=== PATIENT | male | born 1975 | race Caucasian/White ===

== ENCOUNTER 2021-02-07 18:50 | Inpatient (IN) | payer OTHER ==
--- NOTE | 2021-02-07 19:36 | XR ---
EXAMINATION TYPE: XR chest 2V DATE OF EXAM: 02/07/2021 COMPARISON: NONE HISTORY: Cough TECHNIQUE: FINDINGS: There is bilateral patchy pulmonary interstitial pneumonia. Heart is borderline enlarged. T here is slight blunting of the costophrenic angles. IMPRESSION: Moderate pulmonary interstitial pneumonia with small pleural effusions. Heart failure not excluded.
[2021-02-07] MEDS ORDERED: KETOROLAC 15 MG/ML 1 ML VIAL IVP STA (20:39)
--- NOTE | 2021-02-07 20:44 | ED ---
URI HPI - General Chief Complaint: Upper Respiratory Infection Stated Complaint: Abd pain/sob/fever/cough Time Seen by Provider: 02/07/21 20:19 Source: patient, family Mode of arrival: ambulatory - History of Present Illness Initial Comments: 45-year-old male presenting to the emergency department today for chief complaint of chest discomfort shortness of breath possible Covid. Patient states that he has had chest discomfort for the past day he states it began yesterday evening. Patient states at times the pressure and he has had on and off palpitations throughout the day today. He states he feels slightly short of breath he has had bodyaches fevers nausea and nonspecific abdominal pain. Patient states that when the symptoms persisted today he felt it was best to be came to the ER. He denies a jaw pain arm pain, but has had finger paresthesias. pateint states he has felt sweaty today as well. Denies cardiac history of stent or OK. patietn admits to family hx, as well as hx of DM and HTN. patient denies LE swelling or calf pain. Patient has no additional complaints. - Related Data Home Medications Medication Instructions Recorded Confirmed Aspirin EC [Ecotrin Low Dose] 81 mg PO DAILY 02/07/21 02/07/21 Ergocalciferol (Vitamin D2) 1,250 mcg PO Q7D 02/07/21 02/07/21 [Drisdol (50,000 Iu)] Gabapentin [Neurontin] 300 mg PO DAILY 02/07/21 02/07/21 Metoprolol Tartrate [Lopressor] 50 mg PO BID 02/07/21 02/07/21 glipiZIDE [Glucotrol] 5 mg PO AC-BID 02/07/21 02/07/21 hydroCHLOROthiazide [Hydrodiuril] 25 mg PO HS 02/07/21 02/07/21 lisinopriL 40 mg PO DAILY 02/07/21 02/07/21 Allergies Allergy/AdvReac Type Severity Reaction Status Date / Time metformin Allergy Swelling Verified 02/07/21 22:48 Review of Systems ROS Statement: Those systems with pertinent positive or pertinent negative responses have been documented in the HPI. ROS Other: All systems not noted in ROS Statement are negative. Past Medical History Past Medical History: Diabetes Mellitus, Hypertension History of Any Multi-Drug Resistant Organisms: None Reported Past Surgical History: No Surgical Hx Reported Smoking Status: Never smoker Past Alcohol Use History: None Reported Past Drug Use History: None Reported General Exam - General Exam Comments Initial Comments: General: The patient is awake and alert, sweating Eye: Pupils are equal, round and reactive to light, extra-ocular movements are intact. No nystagmus. There is normal conjunctiva bilaterally. No signs of icterus. Ears, nose, mouth and throat: There are moist mucous membranes and no oral lesions. Neck: The neck is supple, there is no tenderness or JVD. Cardiovascular: There is a regular rate and rhythm. No murmur, rub or gallop is appreciated. Respiratory: Lungs are clear to auscultation, respirations are non-labored, breath sounds are equal. No wheezes, stridor, rales, or rhonchi. Gastrointestinal: Soft, non-distended, non-tender abdomen without masses or organomegaly noted. There is no rebound or guarding present. Musculoskeletal: Normal ROM, no tenderness. Strength 5/5. Sensation intact. Radial pulses equal bilaterally 2+. Neurological: A&O x 3. CN II-XII intact grossly, There are no obvious motor or sensory deficits. Coordination appears grossly intact. Speech is normal. Skin: Skin is warm and dry and no rashes or lesions are noted. No LE edema or calf pain. Psychiatric: Cooperative, appropriate mood & affect, normal judgment. Course Vital Signs 02/07/21 19:08 Temperature 99.0 F Pulse Rate 72 Respiratory 18 Rate Blood Pressure 188/85 O2 Sat by Pulse 97 Oximetry - Reevaluation(s) Reevaluation #1: Spoke with Dr Haines physician covering at this time for city call--he accepted admission and recommend starting low intensity heparin for elevated troponin after evaluating the patient in the ER. 02/07/21 23:00 Medical Decision Making - Medical Decision Making 45-year-old male presented for multiple complaints concern for Covid, chest pain shortness of breath patient is covid positive. troponin elevated. EKG no specific changes. reviewed with attneding. will trend. CXR pneumonia/CTA concerning for pneumonia related to covid 19 infection. no PE noted. pt does have symptoms concerning for typical chest pain with hx of DM/HTN. patient accepted by Dr Haines who asked me to place order for low intensity heparin. Cardiology on consultation. patient agreeable to admission and current care plan. - Lab Data Result diagrams: 02/07/21 21:01 02/07/21 21:01 Lab Results 02/07/21 02/07/21 02/07/21 Range/Units 19:13 21:01 21:01 WBC 6.6 (3.8-10.6) k/uL RBC 5.04 (4.30-5.90) m/uL Hgb 15.3 (13.0-17.5) gm/dL Hct 44.6 (39.0-53.0) % MCV 88.4 (80.0-100.0) fL MCH 30.4 (25.0-35.0) pg MCHC 34.4 (31.0-37.0) g/dL RDW 12.4 (11.5-15.5) % Plt Count 202 (150-450) k/uL MPV 8.7 Neutrophils % 84 % Lymphocytes % 8 % Monocytes % 6 % Eosinophils % 1 % Basophils % 1 % Neutrophils # 5.5 (1.3-7.7) k/uL Lymphocytes # 0.6 L (1.0-4.8) k/uL Monocytes # 0.4 (0-1.0) k/uL Eosinophils # 0.0 (0-0.7) k/uL Basophils # 0.1 (0-0.2) k/uL D-Dimer 1.07 H (<0.60) mg/L FEU Sodium (137-145) mmol/L Potassium (3.5-5.1) mmol/L Chloride (98-107) mmol/L Carbon Dioxide (22-30) mmol/L Anion Gap mmol/L BUN (9-20) mg/dL Creatinine (0.66-1.25) mg/dL Est GFR (CKD-EPI)AfAm (>60 ml/min/1.73 sqM) Est GFR (CKD-EPI)NonAf (>60 ml/min/1.73 sqM) Glucose (74-99) mg/dL Calcium (8.4-10.2) mg/dL Total Bilirubin (0.2-1.3) mg/dL AST (17-59) U/L ALT (4-49) U/L Alkaline Phosphatase (38-126) U/L Troponin I (0.000-0.034) ng/mL NT-Pro-B Natriuret Pep pg/mL Total Protein (6.3-8.2) g/dL Albumin (3.5-5.0) g/dL Influenza Type A (PCR) Not Detected (Not Detectd) Influenza Type B (PCR) Not Detected (Not Detectd) RSV (PCR) Not Detected (Not Detectd) SARS-CoV-2 (PCR) Detected A (Not Detectd) 02/07/21 02/07/21 02/07/21 Range/Units 21:01 21:01 21:01 WBC (3.8-10.6) k/uL RBC (4.30-5.90) m/uL Hgb (13.0-17.5) gm/dL Hct (39.0-53.0) % MCV (80.0-100.0) fL MCH (25.0-35.0) pg MCHC (31.0-37.0) g/dL RDW (11.5-15.5) % Plt Count (150-450) k/uL MPV Neutrophils % % Lymphocytes % % Monocytes % % Eosinophils % % Basophils % % Neutrophils # (1.3-7.7) k/uL Lymphocytes # (1.0-4.8) k/uL Monocytes # (0-1.0) k/uL Eosinophils # (0-0.7) k/uL Basophils # (0-0.2) k/uL D-Dimer (<0.60) mg/L FEU Sodium 132 L (137-145) mmol/L Potassium 3.8 (3.5-5.1) mmol/L Chloride 96 L (98-107) mmol/L Carbon Dioxide 25 (22-30) mmol/L Anion Gap 11 mmol/L BUN 18 (9-20) mg/dL Creatinine 0.70 (0.66-1.25) mg/dL Est GFR (CKD-EPI)AfAm >90 (>60 ml/min/1.73 sqM) Est GFR (CKD-EPI)NonAf >90 (>60 ml/min/1.73 sqM) Glucose 272 H (74-99) mg/dL Calcium 8.8 (8.4-10.2) mg/dL Total Bilirubin 0.8 (0.2-1.3) mg/dL AST 40 (17-59) U/L ALT 22 (4-49) U/L Alkaline Phosphatase 76 (38-126) U/L Troponin I 0.073 H* (0.000-0.034) ng/mL NT-Pro-B Natriuret Pep 525 pg/mL Total Protein 7.1 (6.3-8.2) g/dL Albumin 3.9 (3.5-5.0) g/dL Influenza Type A (PCR) (Not Detectd) Influenza Type B (PCR) (Not Detectd) RSV (PCR) (Not Detectd) SARS-CoV-2 (PCR) (Not Detectd) Disposition Clinical Impression: COVID-19, Elevated troponin, Chest pressure, Dyspnea Disposition: ADMITTED IP TO THIS [facility] Condition: Stable Is patient prescribed a controlled substance at d/c from ED?: No Referrals: Kareem Byers DO [Primary Care Provider] - 1-2 days Time of Disposition: 22:58 Decision to Admit Reason: Admit from EC Decision Date: 02/07/21 Decision Time: 22:58
[2021-02-07 21:26] LABS: Basophils # (A) 0.1 k/uL (0-0.2); Basophils % (A) 1 %; Eosinophils % (A) 1 %; HCT 44.6 % (39.0-53.0); HGB 15.3 gm/dL (13.0-17.5); Lymphocytes # (A) 0.6 k/uL (1.0-4.8); Lymphocytes % (A) 8 %; MCH 30.4 pg (25.0-35.0); MCHC 34.4 g/dL (31.0-37.0); MCV 88.4 fL (80.0-100.0); Mean Platelet Volume 8.7; Monocytes # (A) 0.4 k/uL (0-1.0); Monocytes % (A) 6 %; Neutrophils # (A) 5.5 k/uL (1.3-7.7); Neutrophils % (A) 84 %; Platelet Count 202 k/uL (150-450); RBC 5.04 m/uL (4.30-5.90); RDW 12.4 % (11.5-15.5); WBC 6.6 k/uL (3.8-10.6)
[2021-02-07 21:43] LABS: ALT 22 U/L (4-49); AST 40 U/L (17-59); African American GFR (CKD) >90 (>60 ml/min/1.73 sqM); Albumin 3.9 g/dL (3.5-5.0); Alkaline Phosphatase 76 U/L (38-126); Anion Gap 11 mmol/L; Blood Urea Nitrogen 18 mg/dL (9-20); Calcium 8.8 mg/dL (8.4-10.2); Carbon Dioxide 25 mmol/L (22-30); Chloride 96 mmol/L (98-107); Glucose 272 mg/dL (74-99); Non-African American GFR(CKD) >90 (>60 ml/min/1.73 sqM); Sodium 132 mmol/L (137-145); Total Bilirubin 0.8 mg/dL (0.2-1.3); Total Protein 7.1 g/dL (6.3-8.2)
[2021-02-07 22:03] LABS: Potassium 3.8 mmol/L (3.5-5.1)
[2021-02-07] MEDS ORDERED: ASPIRIN 81 MG PO STA (22:22)
[2021-02-07] MEDS ORDERED: MORPHINE SULFATE 4 MG/ML SYRINGE IVP STA (22:24)
[2021-02-07] MEDS ORDERED: NITROGLYCERIN OINT 1 INCH/GM PACKET TOPICAL STA (22:24)
[2021-02-07] MEDS ORDERED: HEPARIN SODIUM 1,000 UN/ML (10ML VL) IV PRN (22:56)
[2021-02-07] MEDS ORDERED: HEPARIN SODIUM 1,000 UN/ML (10ML VL) IV ONE (22:56)
[2021-02-07] MEDS ORDERED: NITROGLYCERIN SL TABS 0.4 MG TAB SUBLINGUAL PRN (22:58)
--- NOTE | 2021-02-07 22:58 | CT ---
EXAMINATION TYPE: CT chest angio for PE DATE OF EXAM: 02/07/2021 COMPARISON: None HISTORY: r/o pe CT DLP: 984.1 mGycm Automated exposure control for dose reduction was used. CONTRAST: Performed with IV Contrast, patient injected with 100 mL of Isovue 370. There are 3-D post processed images. There is extensive patchy bilateral pulmonary interstitial and airspace infiltrates. There is no pleu ral effusion. Heart is borderline enlarged. There is no pericardial effusion. There is no mediastinal adenopathy. Thoracic aorta is intact. There is no aneurysm or dissection. The re are no hilar masses. There is normal contrast opacification of the pulmonary arteries. I see no fi lling defect. The thoracic spine is intact. There is no compression fracture. Sternum is intact. Upper abdominal soft tissues are intact. IMPRESSION: No evidence of pulmonary embolism. Bilateral extensive pulmonary infiltrates consistent with pneumoni a. Mild cardiomegaly.
[2021-02-07] MEDS ORDERED: HEPARIN SOD,PORK IN 0.45% NACL 25,000 UNIT in 0.45% NACL 1 250ML.BAG IV SCH (23:00)
[2021-02-07 23:25] LABS: Partial Thromboplastin Time 26.3 sec (22.0-30.0); Prothrombin Time 10.4 sec (9.0-12.0)
--- NOTE | 2021-02-08 04:33 | P.HPIM ---
History of Present Illness H&P Date: 02/07/21 Patient is a 45-year-old male with a PMH of type II DM, hypertension, and hyperlipidemia who presented to the emergency room with complaints of chest pain and shortness of breath. The patient notes that he was exposed to people with COVID and that he hadn't been feeling well over the past 4-5 days but reports that he developed his epigastric and substernal chest discomfort yesterday. The pain started as he was sitting on a couch, pressure-like, 7 out of 10, nonradiating, intermittent, lasting for a few minutes at a time, with associated shortness of breath and nausea. The patient denied any prior history of IA. He also denied recent travel, leg swelling or leg pain. In the emergency room, chest CTA was negative for PE but revealed bilateral extensive pulmonary infiltrates along with mild cardiomegaly. EKG revealed normal sinus rhythm at 77 bpm with prolonged QT. Laboratory evaluation was remarkable for troponin 0.073, glucose 272, sodium 132, and coronavirus PCR positive Review of Systems Pertinent positives and negatives as discussed in HPI, a complete review of systems was performed and all other systems are negative. Past Medical History Past Medical History: Diabetes Mellitus, Hypertension History of Any Multi-Drug Resistant Organisms: None Reported Past Surgical History: No Surgical Hx Reported Smoking Status: Never smoker Past Alcohol Use History: None Reported Past Drug Use History: None Reported Medications and Allergies Home Medications Medication Instructions Recorded Confirmed Type Aspirin EC [Ecotrin Low Dose] 81 mg PO DAILY 02/07/21 02/07/21 History Ergocalciferol (Vitamin D2) 1,250 mcg PO Q7D 02/07/21 02/07/21 History [Drisdol (50,000 Iu)] Gabapentin [Neurontin] 300 mg PO DAILY 02/07/21 02/07/21 History Metoprolol Tartrate [Lopressor] 50 mg PO BID 02/07/21 02/07/21 History glipiZIDE [Glucotrol] 5 mg PO AC-BID 02/07/21 02/07/21 History hydroCHLOROthiazide [Hydrodiuril] 25 mg PO HS 02/07/21 02/07/21 History lisinopriL 40 mg PO DAILY 02/07/21 02/07/21 History Allergies Allergy/AdvReac Type Severity Reaction Status Date / Time metformin Allergy Swelling Verified 02/07/21 22:48 Physical Exam Vitals: Vital Signs Temp Pulse Pulse Resp BP Pulse Ox 02/07/21 23:24 75 18 190/83 96 02/07/21 21:10 74 24 02/07/21 19:08 99.0 F 72 18 188/85 97 Intake and Output 02/07/21 02/07/21 02/08/21 14:59 22:59 06:59 Other: Weight 183.251 kg General: non toxic, no distress, appears at stated age, morbidly obese Derm: no unusual rashes/lesions no unusual ecchymoses, warm, dry Head: atraumatic, normocephalic, symmetric Eyes: EOMI, no lid lag, anicteric sclera, pupils equal round reactive to light ENT: Nose and ears atraumatic, no thrush, no pharyngeal erythema Neck: No thyromegaly, no cervical lymphadenopathy, trachea midline, supple Mouth: no lip lesion, mucus membranes moist Cardiovascular: S1S2 reg, no murmur, positive posterior tibial pulse bilateral, no edema, capillary refill less than 2 seconds Lungs: Diffuse mild bilateral rhonchi and rales, no wheezing, no accessory muscle use Abdominal: soft, minimal epigastric tenderness, no guarding, no appreciable organomegaly, normal bowel sounds Ext: no gross muscle atrophy, muscle strength 5 out of 5 in all 4 extremities grossly, no contractures, Neuro: CN II-XI grossly intact, light touch intact all 4 extremities, finger to nose within normal limits, Psych: Alert, oriented, appropriate affect Results CBC & Chem 7: 02/07/21 21:01 02/07/21 21:01 Labs: Abnormal Lab Results - Last 24 Hours (Table) 02/07/21 02/07/21 02/07/21 Range/Units 19:13 21:01 21:01 Lymphocytes # 0.6 L (1.0-4.8) k/uL D-Dimer 1.07 H (<0.60) mg/L FEU Sodium (137-145) mmol/L Chloride (98-107) mmol/L Glucose (74-99) mg/dL Troponin I (0.000-0.034) ng/mL SARS-CoV-2 (PCR) Detected A (Not Detectd) 02/07/21 02/07/21 Range/Units 21:01 21:01 Lymphocytes # (1.0-4.8) k/uL D-Dimer (<0.60) mg/L FEU Sodium 132 L (137-145) mmol/L Chloride 96 L (98-107) mmol/L Glucose 272 H (74-99) mg/dL Troponin I 0.073 H* (0.000-0.034) ng/mL SARS-CoV-2 (PCR) (Not Detectd) Assessment and Plan Plan: NSTEMI -C/w heparin infusion and aspirin -Cardiology consult -Cardiac monitoring -Trend troponin -Nitroglycerin COVID-19 pneumonia -Not requiring supplemental oxygen at this time -Monitor inflammatory markers -Zinc, Vit C, Vit D, Melatonin Prolonged QT -Avoid further prolonging agents Chronic conditions: Type II DM, hypertension, hyperlipidemia -Continue with home meds -Lispro insulin sliding scale with blood glucose monitoring -Check A1c DVT prophylaxis -Heparin infusion The patient is admitted with an anticipated greater than 2 midnight stay for evaluation of NSTEMI CODE STATUS: Full Code Discussed with: Patient Anticipated discharge date: 2-[address]: Home A total of 35 minutes was spent on the care of this complex patient more than 50% of the time was spent in counseling and care coordination.
[2021-02-08 05:09] LABS: Basophils # (A) 0.1 k/uL (0-0.2); Basophils % (A) 1 %; Eosinophils % (A) 0 %; HCT 43.9 % (39.0-53.0); HGB 15.3 gm/dL (13.0-17.5); Lymphocytes # (A) 0.8 k/uL (1.0-4.8); Lymphocytes % (A) 11 %; MCHC 34.8 g/dL (31.0-37.0); MCV 89.2 fL (80.0-100.0); Mean Platelet Volume 8.9; Monocytes # (A) 0.5 k/uL (0-1.0); Monocytes % (A) 7 %; Neutrophils # (A) 5.4 k/uL (1.3-7.7); Neutrophils % (A) 79 %; Platelet Count 228 k/uL (150-450); RBC 4.92 m/uL (4.30-5.90); RDW 12.4 % (11.5-15.5); WBC 6.9 k/uL (3.8-10.6)
[2021-02-08 05:31] LABS: Partial Thromboplastin Time 28.4 sec (22.0-30.0); Prothrombin Time 10.6 sec (9.0-12.0)
[2021-02-08 05:36] LABS: ALT 20 U/L (4-49); AST 33 U/L (17-59); African American GFR (CKD) >90 (>60 ml/min/1.73 sqM); Albumin 3.7 g/dL (3.5-5.0); Alkaline Phosphatase 76 U/L (38-126); Anion Gap 7 mmol/L; Blood Urea Nitrogen 19 mg/dL (9-20); C Reactive Protein 4.9 mg/dL (<1.0); Calcium 8.5 mg/dL (8.4-10.2); Carbon Dioxide 31 mmol/L (22-30); Chloride 95 mmol/L (98-107); Glucose 211 mg/dL (74-99); LDH 813 U/L (313-618); Non-African American GFR(CKD) >90 (>60 ml/min/1.73 sqM); Sodium 133 mmol/L (137-145); Total Bilirubin 0.6 mg/dL (0.2-1.3); Total Protein 6.8 g/dL (6.3-8.2)
[2021-02-08 05:45] LABS: Potassium 3.6 mmol/L (3.5-5.1)
[2021-02-08 05:54] LABS: Cholesterol 135 mg/dL (<200); HDL Cholesterol 28 mg/dL (40-60); LDL Cholesterol,Calculated 83 mg/dL (0-99); Triglycerides 121 mg/dL (<150)
[2021-02-08 05:57] LABS: Glucose,Whole Blood 211 mg/dL (75-99)
[2021-02-08] MEDS: ACETAMINOPHEN TAB 325 MG TAB PO PRN ×3 (06:04→23:13)
[2021-02-08] MEDS: INSULIN ASPART (NovoLOG) 100 UNIT/ML VIAL SQ SCH ×4 (06:06→20:45)
[2021-02-08] MEDS ORDERED: ASPIRIN 325 MG TAB PO SCH (09:00)
[2021-02-08] MEDS ORDERED: METOPROLOL TARTRATE 25 MG TAB PO SCH (09:00)
[2021-02-08] MEDS: ASCORBIC ACID 500 MG TAB PO SCH (09:44)
[2021-02-08] MEDS: CHOLECALCIFEROL 25 MCG (1000 IU) TABLET PO SCH (09:44)
[2021-02-08] MEDS: GABAPENTIN 300 MG CAP PO SCH (09:44)
[2021-02-08] MEDS: lisinopriL 20 MG TAB PO SCH (09:44)
[2021-02-08] MEDS: ASPIRIN 81 MG PO SCH (09:44)
[2021-02-08] MEDS: METOPROLOL TARTRATE 50 MG TAB PO SCH ×2 (09:45→20:44)
[2021-02-08 10:36] LABS: Ferritin 431.3 ng/mL (22.0-322.0)
--- NOTE | 2021-02-08 12:21 | ECHOF ---
Referral Reason:chest pain, elevated troponin MEASUREMENTS -------- HEIGHT: 165.1 cm WEIGHT: 185.5 kg BP: IVSd: 1.6 cm (0.6 - 1.1) LVIDd: 3.6 cm (3.9 - 5.3) LVPWd: 2.1 cm (0.6 - 1.1) IVSs: 1.9 cm LVIDs: 2.1 cm LVPWs: 1.8 cm LA Diam: 4.5 cm (2.7 - 3.8) Ao Diam: 3.0 cm (2.0 - 3.7) FINDINGS -------- Sinus rhythm. This was a technically difficult study with suboptimal views. Morbid Obesity Pt is Covid positive . The left ventricular size is normal. There is moderate concentric left ventricular hypertrophy. O verall left ventricular systolic function is normal with, an EF between 55 - 60 %. The right ventricle is normal in size. The left atrium is mildly dilated. The right atrial size is normal. 5.0mg OF Lumason UTLIZED: 2 OR MORE WALL SEGMENTS NOT VISUALIZED. The aortic valve was not well visualized. The mitral valve was not well visualized. The tricuspid valve was not well visualized. The pulmonic valve was not well visualized. The aortic root size is normal. There is no pericardial effusion. CONCLUSIONS -------- 1. This was a technically difficult study with suboptimal views. 2. Morbid Obesity 3. Pt is Covid positive. 4. There is moderate concentric left ventricular hypertrophy. 5. Overall left ventricular systolic function is normal with, an EF between 55 - 60 %. 6. The left atrium is mildly dilated. 7. 5.0mg OF Lumason UTLIZED: 2 OR MORE WALL SEGMENTS NOT VISUALIZED. 8. The aortic valve was not well visualized. 9. The mitral valve was not well visualized. 10. The tricuspid valve was not well visualized. 11. There is no pericardial effusion. EVALUATION SPECIALIST: Brenna Orozco RDCS
--- NOTE | 2021-02-08 14:27 | P.PN ---
Subjective Progress Note Date: 02/08/21 No new complaints today. Denies any further chest pain at this time. Does have minimal O2 requirement. Objective - Vital Signs Vital signs: Vital Signs Temp 98.2 F 02/08/21 12:17 Pulse 69 02/08/21 12:17 Resp 16 02/08/21 12:17 BP 141/88 02/08/21 12:17 Pulse Ox 93 L 02/08/21 12:17 Intake & Output 02/07/21 02/08/21 02/08/21 18:59 06:59 18:59 Intake Total 63.5 100.967 Balance 63.5 100.967 Weight 183.251 kg Intake: Intake, IV Titration 63.5 100.967 Amount Heparin Sod,Pork in 0.45% 63.5 100.967 NaCl 25,000 unit In 0.45 % NaCl 1 250ml.bag @ 5. 457 UNITS/KG/HR 10 mls/hr IV .Q24H [facility] Rx#: [id number] - Exam Gen: awake, alert, obese HEENT: normocephalic, atraumatic, good hearing acuity, moist mucous membranes Resp: Minimized air exchange, breathing comfortably with no accessory muscle use CVS: good distal perfusion x 4, GI: soft, NTTP, ND : no SPT, no CVAT, ding catheter not present MSK: Trace pitting edema, no clubbing Neuro: non-focal, moving all extremities Psych: cooperative, euthymic mood - Labs CBC & Chem 7: 02/08/21 04:33 02/08/21 04:33 Labs: Abnormal Lab Results - Last 24 Hours (Table) 02/07/21 02/07/21 02/07/21 Range/Units 19:13 21:01 21:01 Lymphocytes # 0.6 L (1.0-4.8) k/uL D-Dimer 1.07 H (<0.60) mg/L FEU Sodium (137-145) mmol/L Chloride (98-107) mmol/L Carbon Dioxide (22-30) mmol/L Glucose (74-99) mg/dL POC Glucose (mg/dL) (75-99) mg/dL Ferritin (22.0-322.0) ng/mL Lactate Dehydrogenase (313-618) U/L Troponin I (0.000-0.034) ng/mL C-Reactive Protein (<1.0) mg/dL HDL Cholesterol (40-60) mg/dL SARS-CoV-2 (PCR) Detected A (Not Detectd) 02/07/21 02/07/21 02/08/21 Range/Units 21:01 21:01 00:22 Lymphocytes # (1.0-4.8) k/uL D-Dimer (<0.60) mg/L FEU Sodium 132 L (137-145) mmol/L Chloride 96 L (98-107) mmol/L Carbon Dioxide (22-30) mmol/L Glucose 272 H (74-99) mg/dL POC Glucose (mg/dL) (75-99) mg/dL Ferritin (22.0-322.0) ng/mL Lactate Dehydrogenase (313-618) U/L Troponin I 0.073 H* 0.081 H* (0.000-0.034) ng/mL C-Reactive Protein (<1.0) mg/dL HDL Cholesterol (40-60) mg/dL SARS-CoV-2 (PCR) (Not Detectd) 02/08/21 02/08/21 02/08/21 Range/Units 03:20 04:33 04:33 Lymphocytes # 0.8 L (1.0-4.8) k/uL D-Dimer (<0.60) mg/L FEU Sodium 133 L (137-145) mmol/L Chloride 95 L (98-107) mmol/L Carbon Dioxide 31 H (22-30) mmol/L Glucose 211 H (74-99) mg/dL POC Glucose (mg/dL) (75-99) mg/dL Ferritin 431.3 H (22.0-322.0) ng/mL Lactate Dehydrogenase 813 H (313-618) U/L Troponin I 0.097 H* (0.000-0.034) ng/mL C-Reactive Protein 4.9 H (<1.0) mg/dL HDL Cholesterol 28 L (40-60) mg/dL SARS-CoV-2 (PCR) (Not Detectd) 02/08/21 Range/Units 05:55 Lymphocytes # (1.0-4.8) k/uL D-Dimer (<0.60) mg/L FEU Sodium (137-145) mmol/L Chloride (98-107) mmol/L Carbon Dioxide (22-30) mmol/L Glucose (74-99) mg/dL POC Glucose (mg/dL) 211 H (75-99) mg/dL Ferritin (22.0-322.0) ng/mL Lactate Dehydrogenase (313-618) U/L Troponin I (0.000-0.034) ng/mL C-Reactive Protein (<1.0) mg/dL HDL Cholesterol (40-60) mg/dL SARS-CoV-2 (PCR) (Not Detectd) Assessment and Plan Assessment: NSTEMI -C/w heparin infusion and aspirin -Cardiology consult, pending -Cardiac monitoring -Trend troponin -Nitroglycerin COVID-19 pneumonia -Not requiring supplemental oxygen at this time -Monitor inflammatory markers = ferritin, CRP, and LDH are elevated -Zinc, Vit C, Vit D, Melatonin -Avoiding dexamethasone at this time given minimal oxygen requirement, no dyspnea, and elevated glucose in the setting of type 2 diabetes Prolonged QT -Avoid further prolonging agents Chronic conditions: Type II DM, hypertension, hyperlipidemia -Continue with home meds -Lispro insulin sliding scale with blood glucose monitoring -Check A1c DVT prophylaxis -Heparin infusion The patient is admitted with an anticipated greater than 2 midnight stay for evaluation of NSTEMI CODE STATUS: Full Code Discussed with: Patient Anticipated discharge date: 2-[address]: Home
--- NOTE | 2021-02-08 15:04 | P.CRDCN ---
History of Present Illness History of present illness: HISTORY OF PRESENTING ILLNESS This is a pleasant 45-year-old male past medical history significant for Hypertension, Type 2 Diabetes, hyperlipidemia. 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 We have been asked to see in consultation for chest pain, elevated troponin. Patient presents emergency department with chest pain and shortness of breath. Found to be Covid-19 positive. He developed his epigastric and substernal chest discomfort yesterday. Associated shortness of breath and nausea. Pain felt like a pressure 8/10, non exertinoal, nonradiating, intermittent. Last about 2 minutes. Denies history of [place], stroke in the past. Laboratory data reviewed, troponin 0.07, 0.08, 0.09, sodium 133, potassium 3.6, serum creatinine 0.89, triglycerides 121, cholesterol 135, LDL 83, HDL 28 Vital signs blood pressure 152/75, heart rate 81, afebrile, maintaining oxygen saturations 97% on 2 L DIAGNOSTICS EKG reveals sinus rhythm, HR 77, no significant ST-T wave abnormalities Chest CT- negative for PE. Bilateral extensive pulmonary infiltrates consistent with PNA. REVIEW OF SYSTEMS At the time of my exam: CONSTITUTIONAL: Denies fever or chills. CARDIOVASCULAR: +chest pain, +shortness of breath, Honey orthopnea, PND or palpitations. RESPIRATORY: Denies cough. GASTROINTESTINAL: Denies abdominal pain, diarrhea, constipation, nausea or vomiting. MUSCULOSKELETAL: Denies myalgias. NEUROLOGIC: Denies numbness, tingling, headacbe or weakness. ENDOCRINE: Denies fatigue, weight change, polydipsia or polyurina. GENITOURINARY: Denies burning, hematuria or urgency with micturation. HEMATOLOGIC: Denies history of anemia or bleeding. PHYSICAL EXAMINATION No thorough exam due to covid-19 infection ASSESSMENT Chest pain, atypical , most likely related to covid-19 Elevated troponin, most likely related to covid-19 infection COVID-19 infection Type 2 Diabetes Hyperlipidemia Hypertension PLAN Obtain 2D echocardiogram- Results reviewed EF 55% 60%, LA is mildly dilated From cardiology standpoint, no intervention needed at this time. Patient can follow up outpatient with Dr. Villarreal for outpatient stress test. Nurse Practitioner note has been reviewed, I agree with a documented findings and plan of care. Patient was seen and examined. Past Medical History Past Medical History: Diabetes Mellitus, Hypertension History of Any Multi-Drug Resistant Organisms: None Reported Past Surgical History: No Surgical Hx Reported Past Anesthesia/Blood Transfusion Reactions: No Reported Reaction Smoking Status: Never smoker Past Alcohol Use History: None Reported Past Drug Use History: None Reported Medications and Allergies Home Medications Medication Instructions Recorded Confirmed Type Aspirin EC [Ecotrin Low Dose] 81 mg PO DAILY 02/07/21 02/07/21 History Ergocalciferol (Vitamin D2) 1,250 mcg PO Q7D 02/07/21 02/07/21 History [Drisdol (50,000 Iu)] Gabapentin [Neurontin] 300 mg PO DAILY 02/07/21 02/07/21 History Metoprolol Tartrate [Lopressor] 50 mg PO BID 02/07/21 02/07/21 History glipiZIDE [Glucotrol] 5 mg PO AC-BID 02/07/21 02/07/21 History hydroCHLOROthiazide [Hydrodiuril] 25 mg PO HS 02/07/21 02/07/21 History lisinopriL 40 mg PO DAILY 02/07/21 02/07/21 History Allergies Allergy/AdvReac Type Severity Reaction Status Date / Time metformin Allergy Swelling Verified 02/07/21 22:48 Physical Exam Vitals: Vital Signs Temp Pulse Pulse Resp BP BP Pulse Ox 02/08/21 04:00 98.4 F 79 20 165/71 98 02/08/21 01:20 97.6 F 85 18 121/65 98 02/08/21 00:43 84 20 164/83 96 02/07/21 23:24 75 18 190/83 96 02/07/21 21:10 74 24 02/07/21 19:08 99.0 F 72 18 188/85 97 Intake and Output 02/07/21 02/08/21 02/08/21 22:59 06:59 14:59 Intake Total 63.5 Balance 63.5 Intake: Intake, IV Titration 63.5 Amount Heparin Sod,Pork in 0.45% 63.5 NaCl 25,000 unit In 0.45 % NaCl 1 250ml.bag @ 5. 457 UNITS/KG/HR 10 mls/hr IV .Q24H [facility] Rx#: [id number] Other: Weight 183.251 kg 183.251 kg Results 02/08/21 04:33 02/08/21 04:33 Cardiac Enzymes 02/07/21 02/07/21 02/08/21 Range/Units 21:01 21:01 00:22 AST 40 (17-59) U/L Lactate Dehydrogenase (313-618) U/L Troponin I 0.073 H* 0.081 H* (0.000-0.034) ng/mL 02/08/21 02/08/21 Range/Units 03:20 04:33 AST 33 (17-59) U/L Lactate Dehydrogenase 813 H (313-618) U/L Troponin I 0.097 H* (0.000-0.034) ng/mL Coagulation 02/07/21 02/08/21 Range/Units 09:01 04:33 PT 10.4 10.6 (9.0-12.0) sec APTT 26.3 28.4 (22.0-30.0) sec Lipids 02/08/21 Range/Units 04:33 Triglycerides 121 (<150) mg/dL Cholesterol 135 (<200) mg/dL HDL Cholesterol 28 L (40-60) mg/dL CBC 02/07/21 02/08/21 Range/Units 21:01 04:33 WBC 6.6 6.9 (3.8-10.6) k/uL RBC 5.04 4.92 (4.30-5.90) m/uL Hgb 15.3 15.3 (13.0-17.5) gm/dL Hct 44.6 43.9 (39.0-53.0) % Plt Count 202 228 (150-450) k/uL Comprehensive Metabolic Panel 02/07/21 02/08/21 Range/Units 21:01 04:33 Sodium 132 L 133 L (137-145) mmol/L Potassium 3.8 3.6 (3.5-5.1) mmol/L Chloride 96 L 95 L (98-107) mmol/L Carbon Dioxide 25 31 H (22-30) mmol/L BUN 18 19 (9-20) mg/dL Creatinine 0.70 0.89 (0.66-1.25) mg/dL Glucose 272 H 211 H (74-99) mg/dL Calcium 8.8 8.5 (8.4-10.2) mg/dL AST 40 33 (17-59) U/L ALT 22 20 (4-49) U/L Alkaline Phosphatase 76 76 (38-126) U/L Total Protein 7.1 6.8 (6.3-8.2) g/dL Albumin 3.9 3.7 (3.5-5.0) g/dL Current Medications Generic Name Dose Route Start Last Admin Trade Name Freq PRN Reason Stop Dose Admin Acetaminophen 650 mg 02/08/21 04:32 02/08/21 06:04 Acetaminophen Tab 325 Mg Tab PO 650 mg Q6HR PRN Administration Fever and/ or Pain Ascorbic Acid 1,000 mg 02/08/21 09:00 Ascorbic Acid 500 Mg Tab PO DAILY [facility] Aspirin 325 mg 02/08/21 09:00 Aspirin 325 Mg Tab PO DAILY [facility] Cholecalciferol 125 mcg 02/08/21 09:00 Cholecalciferol 25 Mcg (1000 Iu) Tablet PO DAILY [facility] Gabapentin 300 mg 02/08/21 09:00 Gabapentin 300 Mg Cap PO DAILY [facility] Heparin Sodium (Porcine) 0 unit 02/07/21 22:56 Heparin Sodium 1,000 Un/Ml (10ml Vl) IV PER PROTOCOL PRN Low PTT Protocol Hydrochlorothiazide 25 mg 02/08/21 21:00 Hydrochlorothiazide 25 Mg Tab PO HS [facility] Heparin Sodium/Sodium Chloride 250 mls @ 10 mls/hr 02/07/21 23:00 02/08/21 05:42 25,000 unit/ Sodium Chloride IV 7.09 units/kg/hr .Q24H [facility] 13 mls/hr Titration Protocol 5.457 UNITS/KG/HR Insulin Aspart 0 unit 02/08/21 07:30 02/08/21 06:06 Insulin Aspart (Novolog) 100 Unit/Ml Vial SQ Not Given ACHS [facility] Protocol Lisinopril 40 mg 02/08/21 09:00 Lisinopril 20 Mg Tab PO DAILY [facility] Melatonin 5 mg 02/08/21 21:00 Melatonin 5 Mg Tablet PO HS [facility] Metoprolol Tartrate 50 mg 02/08/21 09:00 Metoprolol Tartrate 50 Mg Tab PO BID [facility] Nitroglycerin 0.4 mg 02/07/21 22:58 Nitroglycerin Sl Tabs 0.4 Mg Tab SUBLINGUAL Q5M PRN Chest Pain Intake and Output 02/07/21 02/08/21 02/08/21 22:59 06:59 14:59 Intake Total 63.5 Balance 63.5 Intake: Intake, IV Titration 63.5 Amount Heparin Sod,Pork in 0.45% 63.5 NaCl 25,000 unit In 0.45 % NaCl 1 250ml.bag @ 5. 457 UNITS/KG/HR 10 mls/hr IV .Q24H [facility] Rx#: [id number] Other: Weight 183.251 kg 183.251 kg 02/08/21 04:33 02/08/21 04:33
[2021-02-08 16:56] LABS: Glucose,Whole Blood 206 mg/dL (75-99)
[2021-02-08] MEDS: HEPARIN SOD,PORK IN 0.45% NACL 25,000 UNIT in 0.45% NACL 1 250ML.BAG IV SCH (17:16)
[2021-02-08 20:03] LABS: Glucose,Whole Blood 274 mg/dL (75-99)
[2021-02-08] MEDS: MELATONIN 5 MG TABLET PO SCH (20:44)
[2021-02-08] MEDS: hydroCHLOROthiazide 25 MG TAB PO SCH (20:44)
[2021-02-08 22:35] LABS: Hemoglobin A1C 8.3 % (4.0-6.0)
[2021-02-09 05:13] LABS: Basophils # (A) 0.1 k/uL (0-0.2); Basophils % (A) 1 %; Eosinophils % (A) 0 %; HCT 43.5 % (39.0-53.0); HGB 14.4 gm/dL (13.0-17.5); Lymphocytes # (A) 0.9 k/uL (1.0-4.8); Lymphocytes % (A) 12 %; MCHC 33.2 g/dL (31.0-37.0); MCV 90.5 fL (80.0-100.0); Mean Platelet Volume 9.4; Monocytes # (A) 0.3 k/uL (0-1.0); Monocytes % (A) 5 %; Neutrophils # (A) 5.8 k/uL (1.3-7.7); Neutrophils % (A) 81 %; Platelet Count 210 k/uL (150-450); RBC 4.81 m/uL (4.30-5.90); RDW 13.1 % (11.5-15.5); WBC 7.2 k/uL (3.8-10.6)
[2021-02-09 05:25] LABS: Prothrombin Time 10.6 sec (9.0-12.0)
[2021-02-09 05:26] LABS: Partial Thromboplastin Time 68.4 sec (22.0-30.0)
[2021-02-09 05:31] LABS: African American GFR (CKD) >90 (>60 ml/min/1.73 sqM); Anion Gap 8 mmol/L; Blood Urea Nitrogen 26 mg/dL (9-20); Calcium 8.4 mg/dL (8.4-10.2); Carbon Dioxide 30 mmol/L (22-30); Chloride 97 mmol/L (98-107); Glucose 176 mg/dL (74-99); Non-African American GFR(CKD) 87 (>60 ml/min/1.73 sqM); Potassium 3.4 mmol/L (3.5-5.1); Sodium 135 mmol/L (137-145)
[2021-02-09] MEDS: HEPARIN SOD,PORK IN 0.45% NACL 25,000 UNIT in 0.45% NACL 1 250ML.BAG IV SCH (05:43)
[2021-02-09 06:16] LABS: Glucose,Whole Blood 158 mg/dL (75-99)
[2021-02-09] MEDS: INSULIN ASPART (NovoLOG) 100 UNIT/ML VIAL SQ SCH ×4 (06:22→20:13)
[2021-02-09] MEDS: CHOLECALCIFEROL 25 MCG (1000 IU) TABLET PO SCH (08:41)
[2021-02-09] MEDS: lisinopriL 20 MG TAB PO SCH (08:41)
[2021-02-09] MEDS: METOPROLOL TARTRATE 50 MG TAB PO SCH ×2 (08:41→20:13)
[2021-02-09] MEDS: ASCORBIC ACID 500 MG TAB PO SCH (08:41)
[2021-02-09] MEDS: GABAPENTIN 300 MG CAP PO SCH (08:41)
[2021-02-09] MEDS: ASPIRIN 81 MG PO SCH (08:43)
[2021-02-09] MEDS: ACETAMINOPHEN TAB 325 MG TAB PO PRN ×2 (10:00→15:40)
[2021-02-09] MEDS ORDERED: Potassium Replacement Protocol 1 EACH MISC MISCELLANE PRN ×2 (10:09→15:42)
[2021-02-09] MEDS: POTASSIUM CHLORIDE ER 20 MEQ TAB.ER PO SCH ×2 (11:01→12:10)
[2021-02-09 11:42] LABS: Glucose,Whole Blood 197 mg/dL (75-99)
--- NOTE | 2021-02-09 11:57 | P.PN ---
Subjective HISTORY OF PRESENTING ILLNESS This is a pleasant 45-year-old male past medical history significant for Hypertension, Type 2 Diabetes, hyperlipidemia. 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 We have been asked to see in consultation for chest pain, elevated troponin. Patient presents emergency department with chest pain and shortness of breath. Patient states his chest pain started in the epigastric region, then began on the left side of his chest and radiated across his anterior chest. It is exertional. Describes it as a pressure, as if someone is sitting on his chest. He had associated shortness of breath and nausea. He has been exposed to covid-19 from family members and was Found to be Covid-19 positive here. Associated shortness of breath and nausea. Pain was relieved with Tylenol. Pain was aggravated by activity. Last about 2 minutes. Denies history of [place] or stroke in the past. He does not use alcohol, he denies tobacco use. Laboratory data reviewed, troponin 0.07, 0.08, 0.09, sodium 133, potassium 3.6, serum creatinine 0.89, triglycerides 121, cholesterol 135, LDL 83, HDL 28 Vital signs blood pressure 152/75, heart rate 81, afebrile, maintaining oxygen saturations 97% on 2 L. DIAGNOSTICS EKG reveals sinus rhythm, HR 77, no significant ST-T wave abnormalities Chest CT- negative for PE. Bilateral extensive pulmonary infiltrates consistent with PNA. 2D echocardiogram 02/08/21- EF 55% 60%, LA is mildly dilated 02/08/21 Patient was cleared from cardiology perspective for discharge, however, around 4PM patient had another episode of chest pain. Troponin and EKG was repeated EKG revealed sinus rhythm HR 60, with new T wave inversion in leads I and aVL. Patient was kept overnight with heparin drip for further evaluation in the morning. At time of exam patient with no chest pain currently. He states it does not get worse with deep breathing or cough. REVIEW OF SYSTEMS At the time of my exam: CONSTITUTIONAL: Denies fever or chills. CARDIOVASCULAR: +chest pain, +shortness of breath, Honey orthopnea, PND or palpitations. RESPIRATORY: Denies cough. GASTROINTESTINAL: +nausea Denies abdominal pain, diarrhea, constipation, vomiting. MUSCULOSKELETAL: Denies myalgias. NEUROLOGIC: Denies numbness, tingling, headacbe or weakness. ENDOCRINE: Denies fatigue, weight change, polydipsia or polyurina. GENITOURINARY: Denies burning, hematuria or urgency with micturation. HEMATOLOGIC: Denies history of anemia or bleeding. PHYSICAL EXAMINATION Vital signs reviewd CONSTITUTIONAL: No apparent distress. HEENT: Head is normocephalic. Pupils are equal, round. Sclerae anicteric. Mucous membranes of the mouth are moist. No JVD. No carotid bruit. CHEST EXAMINATION: Lungs are diminished bilaterally. No chest wall tenderness is noted on palpation or with deep breathing. HEART EXAMINATION: Regular rate and rhythm. S1, S2 heard no murmurs gallops or rub. ABDOMEN: Soft, nontender. Positive bowel sounds. EXTREMITIES: 2+ peripheral pulses, no lower extremity edema and no calf tenderness. NEUROLOGIC EXAMINATION: Patient is awake, alert and oriented x3. ASSESSMENT Chest pain, atypical. However with symptoms and elevated troponin, and EKG changes, concern possible ischemia Elevated troponin Hypokalemia COVID-19 infection Type 2 Diabetes Hyperlipidemia Hypertension PLAN 2D echo obtained and reviewed with normal ventricular systolic function, no wall motion abnormalities. Will check magnesium Will replace potassium, and will recheck potassium after replacement Repeat EKG after potassium replacement Will continue heparin drip for now. Pending the above, will keep patient overnight for further monitoring Nurse Practitioner note has been reviewed, I agree with a documented findings and plan of care. Patient was seen and examined. Objective - Vital Signs Vital signs: Vital Signs Temp 100.7 F H 02/08/21 18:37 Pulse 89 02/08/21 18:37 Resp 16 02/08/21 18:37 BP 149/84 02/08/21 18:37 Pulse Ox 96 02/08/21 18:37 Intake & Output 02/08/21 02/08/21 02/09/21 06:59 18:59 06:59 Intake Total 63.5 100.967 Balance 63.5 100.967 Weight 183.251 kg Intake: Intake, IV Titration 63.5 100.967 Amount Heparin Sod,Pork in 0.45% 63.5 100.967 NaCl 25,000 unit In 0.45 % NaCl 1 250ml.bag @ 5. 457 UNITS/KG/HR 10 mls/hr IV .Q24H [facility] Rx#: [id number] - Labs CBC & Chem 7: 02/09/21 04:41 02/09/21 04:41 Labs: Abnormal Lab Results - Last 24 Hours (Table) 02/07/21 02/07/21 02/07/21 Range/Units 19:13 21:01 21:01 Lymphocytes # 0.6 L (1.0-4.8) k/uL D-Dimer 1.07 H (<0.60) mg/L FEU Sodium (137-145) mmol/L Chloride (98-107) mmol/L Carbon Dioxide (22-30) mmol/L Glucose (74-99) mg/dL POC Glucose (mg/dL) (75-99) mg/dL Ferritin (22.0-322.0) ng/mL Lactate Dehydrogenase (313-618) U/L Troponin I (0.000-0.034) ng/mL C-Reactive Protein (<1.0) mg/dL HDL Cholesterol (40-60) mg/dL SARS-CoV-2 (PCR) Detected A (Not Detectd) 02/07/21 02/07/21 02/08/21 Range/Units 21:01 21:01 00:22 Lymphocytes # (1.0-4.8) k/uL D-Dimer (<0.60) mg/L FEU Sodium 132 L (137-145) mmol/L Chloride 96 L (98-107) mmol/L Carbon Dioxide (22-30) mmol/L Glucose 272 H (74-99) mg/dL POC Glucose (mg/dL) (75-99) mg/dL Ferritin (22.0-322.0) ng/mL Lactate Dehydrogenase (313-618) U/L Troponin I 0.073 H* 0.081 H* (0.000-0.034) ng/mL C-Reactive Protein (<1.0) mg/dL HDL Cholesterol (40-60) mg/dL SARS-CoV-2 (PCR) (Not Detectd) 02/08/21 02/08/21 02/08/21 Range/Units 03:20 04:33 04:33 Lymphocytes # 0.8 L (1.0-4.8) k/uL D-Dimer (<0.60) mg/L FEU Sodium 133 L (137-145) mmol/L Chloride 95 L (98-107) mmol/L Carbon Dioxide 31 H (22-30) mmol/L Glucose 211 H (74-99) mg/dL POC Glucose (mg/dL) (75-99) mg/dL Ferritin 431.3 H (22.0-322.0) ng/mL Lactate Dehydrogenase 813 H (313-618) U/L Troponin I 0.097 H* (0.000-0.034) ng/mL C-Reactive Protein 4.9 H (<1.0) mg/dL HDL Cholesterol 28 L (40-60) mg/dL SARS-CoV-2 (PCR) (Not Detectd) 02/08/21 02/08/21 02/08/21 Range/Units 05:55 15:05 16:55 Lymphocytes # (1.0-4.8) k/uL D-Dimer (<0.60) mg/L FEU Sodium (137-145) mmol/L Chloride (98-107) mmol/L Carbon Dioxide (22-30) mmol/L Glucose (74-99) mg/dL POC Glucose (mg/dL) 211 H 206 H (75-99) mg/dL Ferritin (22.0-322.0) ng/mL Lactate Dehydrogenase (313-618) U/L Troponin I 0.269 H* (0.000-0.034) ng/mL C-Reactive Protein (<1.0) mg/dL HDL Cholesterol (40-60) mg/dL SARS-CoV-2 (PCR) (Not Detectd)
--- NOTE | 2021-02-09 12:45 | P.PN ---
Subjective Progress Note Date: 02/09/21 Pt still requiring 2L NC. No interventional plan per cardiology at this time. Objective - Vital Signs Vital signs: Vital Signs Temp 99.3 F 02/09/21 08:00 Pulse 63 02/09/21 11:04 Resp 18 02/09/21 11:04 BP 137/70 02/09/21 11:04 Pulse Ox 93 L 02/09/21 12:00 Intake & Output 02/08/21 02/09/21 02/09/21 18:59 06:59 18:59 Intake Total 100.967 250.000 540 Output Total 300 Balance 100.967 250.000 240 Weight 158 kg Intake: Intake, IV Titration 100.967 250.000 Amount Heparin Sod,Pork in 0.45% 100.967 NaCl 25,000 unit In 0.45 % NaCl 1 250ml.bag @ 5. 457 UNITS/KG/HR 10 mls/hr IV .Q24H [facility] Rx#: [id number] Heparin Sod,Pork in 0.45% 250.000 NaCl 25,000 unit In 0.45 % NaCl 1 250ml.bag @ 5. 457 UNITS/KG/HR 10 mls/hr IV .Q24H [facility] Rx#: [id number] Oral 540 Output: Urine 300 Other: # Voids 1 - Exam Gen: awake, alert, obese HEENT: normocephalic, atraumatic, good hearing acuity, moist mucous membranes Resp: Minimized air exchange, breathing comfortably with no accessory muscle use CVS: good distal perfusion x 4, GI: soft, NTTP, ND : no SPT, no CVAT, ding catheter not present MSK: Trace pitting edema, no clubbing Neuro: non-focal, moving all extremities Psych: cooperative, euthymic mood - Labs CBC & Chem 7: 02/09/21 04:41 02/09/21 04:41 Labs: Abnormal Lab Results - Last 24 Hours (Table) 02/08/21 02/08/21 02/08/21 Range/Units 11:48 15:05 16:55 Lymphocytes # (1.0-4.8) k/uL APTT (22.0-30.0) sec Sodium (137-145) mmol/L Potassium (3.5-5.1) mmol/L Chloride (98-107) mmol/L BUN (9-20) mg/dL Glucose (74-99) mg/dL POC Glucose (mg/dL) 206 H (75-99) mg/dL Hemoglobin A1c 8.3 H (4.0-6.0) % Magnesium (1.6-2.3) mg/dL Troponin I 0.269 H* (0.000-0.034) ng/mL 02/08/21 02/08/21 02/09/21 Range/Units 19:11 19:52 04:41 Lymphocytes # (1.0-4.8) k/uL APTT 39.7 H 68.4 H (22.0-30.0) sec Sodium (137-145) mmol/L Potassium (3.5-5.1) mmol/L Chloride (98-107) mmol/L BUN (9-20) mg/dL Glucose (74-99) mg/dL POC Glucose (mg/dL) 274 H (75-99) mg/dL Hemoglobin A1c (4.0-6.0) % Magnesium (1.6-2.3) mg/dL Troponin I (0.000-0.034) ng/mL 02/09/21 02/09/21 02/09/21 Range/Units 04:41 04:41 04:41 Lymphocytes # 0.9 L (1.0-4.8) k/uL APTT (22.0-30.0) sec Sodium 135 L (137-145) mmol/L Potassium 3.4 L (3.5-5.1) mmol/L Chloride 97 L (98-107) mmol/L BUN 26 H (9-20) mg/dL Glucose 176 H (74-99) mg/dL POC Glucose (mg/dL) (75-99) mg/dL Hemoglobin A1c (4.0-6.0) % Magnesium (1.6-2.3) mg/dL Troponin I 0.197 H* (0.000-0.034) ng/mL 02/09/21 02/09/21 02/09/21 Range/Units 06:14 11:40 11:41 Lymphocytes # (1.0-4.8) k/uL APTT 52.2 H (22.0-30.0) sec Sodium (137-145) mmol/L Potassium (3.5-5.1) mmol/L Chloride (98-107) mmol/L BUN (9-20) mg/dL Glucose (74-99) mg/dL POC Glucose (mg/dL) 158 H 197 H (75-99) mg/dL Hemoglobin A1c (4.0-6.0) % Magnesium (1.6-2.3) mg/dL Troponin I (0.000-0.034) ng/mL 02/09/21 Range/Units 11:41 Lymphocytes # (1.0-4.8) k/uL APTT (22.0-30.0) sec Sodium (137-145) mmol/L Potassium (3.5-5.1) mmol/L Chloride (98-107) mmol/L BUN (9-20) mg/dL Glucose (74-99) mg/dL POC Glucose (mg/dL) (75-99) mg/dL Hemoglobin A1c (4.0-6.0) % Magnesium 2.5 H (1.6-2.3) mg/dL Troponin I (0.000-0.034) ng/mL Assessment and Plan Assessment: COVID-19 pneumonia Acute Hypoxemic Respiratory Failure -Requiring 2L NC --> attempt to wean off to room air, otherwise will begin dexamethasone and consult pulmonology -Avoiding dexamethasone at this time given minimal oxygen requirement, no dyspnea, and elevated glucose in the setting of type 2 diabetes -Monitor inflammatory markers = ferritin, CRP, and LDH are elevated -Zinc, Vit C, Vit D, Melatonin NSTEMI -C/w heparin infusion and aspirin -Cardiology consult, appreciate recs -Cardiac monitoring -Trend troponins -Nitroglycerin Prolonged QT -Avoid further prolonging agents Chronic conditions: Type II DM, hypertension, hyperlipidemia -Continue with home meds -Lispro insulin sliding scale with blood glucose monitoring -Check A1c DVT prophylaxis -Heparin infusion The patient is admitted with an anticipated greater than 2 midnight stay for evaluation of NSTEMI CODE STATUS: Full Code Discussed with: Patient Anticipated discharge date: 2-[address]: Home
[2021-02-09] MEDS ORDERED: POTASSIUM CHLORIDE ER 20 MEQ TAB.ER PO SCH (16:00)
[2021-02-09 16:43] LABS: Glucose,Whole Blood 200 mg/dL (75-99)
[2021-02-09 19:44] LABS: Glucose,Whole Blood 194 mg/dL (75-99)
[2021-02-09] MEDS ORDERED: ONDANSETRON 4 MG/2 ML VIAL IVP PRN (20:01)
[2021-02-09] MEDS: MELATONIN 5 MG TABLET PO SCH (20:13)
[2021-02-09] MEDS: hydroCHLOROthiazide 25 MG TAB PO SCH (20:13)
[2021-02-09] MEDS ORDERED: GABAPENTIN 300 MG CAP PO SCH (21:00)
[2021-02-10] MEDS ORDERED: cloNIDine HCL 0.2 MG TAB PO PRN (03:31)
[2021-02-10 05:52] LABS: Glucose,Whole Blood 191 mg/dL (75-99)
[2021-02-10] MEDS: INSULIN ASPART (NovoLOG) 100 UNIT/ML VIAL SQ SCH ×2 (05:54→13:05)
[2021-02-10 08:04] LABS: African American GFR (CKD) >90 (>60 ml/min/1.73 sqM); Anion Gap 7 mmol/L; Blood Urea Nitrogen 28 mg/dL (9-20); Calcium 8.5 mg/dL (8.4-10.2); Carbon Dioxide 29 mmol/L (22-30); Chloride 100 mmol/L (98-107); Glucose 198 mg/dL (74-99); Magnesium 2.6 mg/dL (1.6-2.3); Non-African American GFR(CKD) 88 (>60 ml/min/1.73 sqM); Sodium 136 mmol/L (137-145)
[2021-02-10] MEDS: ASCORBIC ACID 500 MG TAB PO SCH (08:29)
[2021-02-10] MEDS: METOPROLOL TARTRATE 50 MG TAB PO SCH (08:29)
[2021-02-10] MEDS: ASPIRIN 81 MG PO SCH (08:30)
[2021-02-10] MEDS: HEPARIN SOD,PORK IN 0.45% NACL 25,000 UNIT in 0.45% NACL 1 250ML.BAG IV SCH (08:30)
[2021-02-10] MEDS: CHOLECALCIFEROL 25 MCG (1000 IU) TABLET PO SCH (08:30)
[2021-02-10] MEDS: lisinopriL 20 MG TAB PO SCH (08:30)
[2021-02-10 11:39] LABS: Glucose,Whole Blood 186 mg/dL (75-99)
[2021-02-10] MEDS ORDERED: BAMLANIVIMAB (EUA) 700 MG, ETESEVIMAB (EUA) 1,400 MG in SODIUM CHLORIDE 0.9% 50 ML IVPB ONE (12:00)
[2021-02-10] MEDS ORDERED: SODIUM CHLORIDE 0.9% 50 ML IVPB ONE (12:30)
[2021-02-10] MEDS ORDERED: INSULIN DETEMIR (LEVEMIR) 100 UNIT/ML SYR SQ SCH (12:45)
[2021-02-10 13:17] VITALS: TEMP 99.4
--- NOTE | 2021-02-10 14:21 | P.PN ---
Subjective HISTORY OF PRESENTING ILLNESS This is a pleasant 45-year-old male past medical history significant for Hypertension, Type 2 Diabetes, hyperlipidemia. 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 We have been asked to see in consultation for chest pain, elevated troponin. Patient presents emergency department with chest pain and shortness of breath. Patient states his chest pain started in the epigastric region, then began on the left side of his chest and radiated across his anterior chest. It is exertional. Describes it as a pressure, as if someone is sitting on his chest. He had associated shortness of breath and nausea. He has been exposed to covid-19 from family members and was Found to be Covid-19 positive here. Associated shortness of breath and nausea. Pain was relieved with Tylenol. Pain was aggravated by activity. Last about 2 minutes. Denies history of [place] or stroke in the past. He does not use alcohol, he denies tobacco use. Laboratory data reviewed, troponin 0.07, 0.08, 0.09, sodium 133, potassium 3.6, serum creatinine 0.89, triglycerides 121, cholesterol 135, LDL 83, HDL 28 Vital signs blood pressure 152/75, heart rate 81, afebrile, maintaining oxygen saturations 97% on 2 L. DIAGNOSTICS EKG reveals sinus rhythm, HR 77, no significant ST-T wave abnormalities Chest CT- negative for PE. Bilateral extensive pulmonary infiltrates consistent with PNA. 2D echocardiogram 02/08/21- EF 55% 60%, LA is mildly dilated 02/08/21 Patient was cleared from cardiology perspective for discharge, however, around 4PM patient had another episode of chest pain. Troponin and EKG was repeated EKG revealed sinus rhythm HR 60, with new T wave inversion in leads I and aVL. Patient was kept overnight with heparin drip for further evaluation in the morning. At time of exam patient with no chest pain currently. He states it does not get worse with deep breathing or cough. 02/10/21: Patient seen and examined at bedside, no further chest pain. EKGs revealed with no new ST changes. Blood pressure 137/67, heart rate 73, temp 99.8, maintaining oxygen saturations 94% on room air. Laboratory data reviewed sodium 136, potassium 4.0, serum creatinine 1.03 magnesium 2.6. Patient feels well . No complaints at this time. PHYSICAL EXAMINATION Vital signs reviewd CONSTITUTIONAL: No apparent distress. HEENT: Head is normocephalic. No JVD. No carotid bruit. CHEST EXAMINATION: Lungs are diminished bilaterally. HEART EXAMINATION: Regular rate and rhythm. S1, S2 heard no murmurs gallops or rub. ABDOMEN: Soft, nontender. Positive bowel sounds. EXTREMITIES: 2+ peripheral pulses, no lower extremity edema and no calf tenderness. NEUROLOGIC EXAMINATION: Patient is awake, alert and oriented x3. ASSESSMENT Chest pain, atypical. Acute coronary syndrome has been ruled out Elevated troponin Hypokalemia COVID-19 infection Type 2 Diabetes Hyperlipidemia Hypertension PLAN 2D echo obtained and reviewed with normal ventricular systolic function, no wall motion abnormalities. From cardiology standpoint, patient can be discharged. Follow up with Dr. Villarreal in 2-3 weeks for outpatient testing Nurse Practitioner note has been reviewed, I agree with a documented findings and plan of care. Patient was seen and examined. Objective - Vital Signs Vital signs: Vital Signs Temp 99.4 F 02/10/21 13:14 Pulse 61 02/10/21 12:56 Resp 16 02/10/21 12:56 BP 168/78 02/10/21 13:14 Pulse Ox 93 L 02/10/21 13:14 Intake & Output 02/09/21 02/10/21 02/10/21 18:59 06:59 18:59 Intake Total 660 250 600 Output Total 300 300 Balance 360 250 300 Weight 157 kg Intake: Intake, IV Titration 250 Amount Heparin Sod,Pork in 0.45% 250 NaCl 25,000 unit In 0.45 % NaCl 1 250ml.bag @ 5. 457 UNITS/KG/HR 10 mls/hr IV .Q24H [facility] Rx#: [id number] Oral 660 600 Output: Urine 300 300 - Labs CBC & Chem 7: 02/09/21 04:41 02/10/21 07:15 Labs: Abnormal Lab Results - Last 24 Hours (Table) 02/09/21 02/09/21 02/10/21 Range/Units 16:41 19:41 05:51 APTT (22.0-30.0) sec Sodium (137-145) mmol/L BUN (9-20) mg/dL Glucose (74-99) mg/dL POC Glucose (mg/dL) 200 H 194 H 191 H (75-99) mg/dL Magnesium (1.6-2.3) mg/dL 02/10/21 02/10/21 02/10/21 Range/Units 07:15 07:15 11:36 APTT 50.6 H (22.0-30.0) sec Sodium 136 L (137-145) mmol/L BUN 28 H (9-20) mg/dL Glucose 198 H (74-99) mg/dL POC Glucose (mg/dL) 186 H (75-99) mg/dL Magnesium 2.6 H (1.6-2.3) mg/dL
[2021-02-10 14:41] VITALS: BP 165/60; PULSE 70; RESP 18
--- NOTE | 2021-02-10 15:33 | P.DS ---
Providers Date of admission: 02/07/21 22:34 Expected date of discharge: 02/10/21 Attending physician: Charles Haines MD Consults: 02/07/21 22:58 Consult Physician Urgent Consulting Provider: Chad Garcia Consult Reason/Comments: elevated troponin with chest pressure, covid +, dyspnea Do you want consulting provider notified?: Yes Primary care physician: [facility] Course: HPI: Patient is a 45-year-old male with a PMH of type II DM, hypertension, and hyperlipidemia who presented to the emergency room with complaints of chest pain and shortness of breath. The patient notes that he was exposed to people with COVID and that he hadn't been feeling well over the past 4-5 days but reports that he developed his epigastric and substernal chest discomfort yesterday. The pain started as he was sitting on a couch, pressure-like, 7 out of 10, nonradiating, intermittent, lasting for a few minutes at a time, with associated shortness of breath and nausea. The patient denied any prior history of OR. He also denied recent travel, leg swelling or leg pain. In the emergency room, chest CTA was negative for PE but revealed bilateral extensive pulmonary infiltrates along with mild cardiomegaly. EKG revealed normal sinus rhythm at 77 bpm with prolonged QT. Laboratory evaluation was remarkable for troponin 0.073, glucose 272, sodium 132, and coronavirus PCR positive Hospital Course: COVID-19 pneumonia NSTEMI/Prolonged QT Type II DM, hypertension, hyperlipidemia Upon presentation, patient was on room air, without oxygen requirement, although CXR and CT scan did demonstrate pulmonary infiltrates consistent with pneumonia. Pt's troponin was elevated and increased and he also demonstrated some dynamic EKG changes on 02/08. Cardiology consulted on the patient and monitored him with conservative medical therapy. He did briefly require oxygen, though he was weaned off quickly without ongoing need for it. From cardiac perspective, further ischemic workup was deferred to outpatient setting. Given patient's recent COVID symptoms and + status, but no need for O2 therapy, as well as his high risk for severe COVID illness, patient was given an injection of BAM/ETES prior to discharge. I spent 35 minutes preparing this discharge. Assessment: Gen: awake, alert, obese HEENT: normocephalic, atraumatic, good hearing acuity, moist mucous membranes Resp: Minimized air exchange, breathing comfortably with no accessory muscle use CVS: good distal perfusion x 4, GI: soft, NTTP, ND : no SPT, no CVAT, ding catheter not present MSK: Trace pitting edema, no clubbing Neuro: non-focal, moving all extremities Psych: cooperative, euthymic mood Patient Condition at Discharge: Good Plan - Discharge Summary Discharge Rx Participant: No New Discharge Prescriptions: New Ascorbic Acid [Vitamin C] 1,000 mg PO DAILY #14 tab Continue lisinopriL 40 mg PO DAILY hydroCHLOROthiazide [Hydrodiuril] 25 mg PO HS Metoprolol Tartrate [Lopressor] 50 mg PO BID glipiZIDE [Glucotrol] 5 mg PO AC-BID Ergocalciferol (Vitamin D2) [Drisdol (50,000 Iu)] 1,250 mcg PO Q7D Gabapentin [Neurontin] 300 mg PO DAILY Aspirin EC [Ecotrin Low Dose] 81 mg PO DAILY Discharge Medication List Aspirin EC [Ecotrin Low Dose] 81 mg PO DAILY 02/07/21 [History] Ergocalciferol (Vitamin D2) [Drisdol (50,000 Iu)] 1,250 mcg PO Q7D 02/07/21 [History] Gabapentin [Neurontin] 300 mg PO DAILY 02/07/21 [History] Metoprolol Tartrate [Lopressor] 50 mg PO BID 02/07/21 [History] glipiZIDE [Glucotrol] 5 mg PO AC-BID 02/07/21 [History] hydroCHLOROthiazide [Hydrodiuril] 25 mg PO HS 02/07/21 [History] lisinopriL 40 mg PO DAILY 02/07/21 [History] Ascorbic Acid [Vitamin C] 1,000 mg PO DAILY #14 tab 02/10/21 [Rx] Follow up Appointment(s)/Referral(s): Kareem Byers DO [Primary Care Provider] - 02/15/21 11:30 am (Saturday (virtual visit)) Cece Villarreal MD [STAFF PHYSICIAN] - 3 Weeks (Spoke to receptionist scheduler (Shamika) Office will call with appointment date/time) Patient Instructions/Handouts: Coronavirus Disease 2019 (COVID-19) Discharge Disposition: HOME SELF-CARE
== END 2021-02-10 14:47 | disposition home or self-care (01) | DRG 177 ==
LOC: EC 18:50 → 3SCARD 22:34
PROVIDERS: ADMIT Internal Medicine; ATTEND Internal Medicine
DX: U07.1 COVID-19 (principal); J12.82 Pneumonia due to coronavirus disease 2019; J96.01 Acute respiratory failure with hypoxia; I21.4 Non-ST elevation (NSTEMI) myocardial infarction; Z68.43 Body mass index [BMI] 50.0-59.9, adult; E11.9 Type 2 diabetes mellitus without complications; E66.01 Morbid (severe) obesity due to excess calories; E87.6 Hypokalemia; I10 Essential (primary) hypertension; E78.5 Hyperlipidemia, unspecified; R94.31 Abnormal electrocardiogram [ECG] [EKG]; Z79.82 Long term (current) use of aspirin; Z79.84 Long term (current) use of oral hypoglycemic drugs; Z79.899 Other long term (current) drug therapy; Z88.8 Allergy status to other drugs, medicaments and biological substances
CPT/HCPCS: 36415; 71046; 71275; 80048; 80053; 80061; 82728; 83036; 83615; 83735; 83880; 84132; 84484; 85025; 85379; 85610; 85730; 86140; 87636; 93005; 93306; 94760; 96374; 99285

== ENCOUNTER → 2023-04-17 | Outpatient (CLI) | payer OTHER ==
--- NOTE | 2023-04-17 13:23 | CT ---
EXAMINATION TYPE: CT abdomen pelvis wo con CT DLP: 1263 mGycm, Automated exposure control for dose reduction was used. DATE OF EXAM: 04/17/2023 1:00 PM COMPARISON: CTA chest 02/07/2021 CLINICAL INDICATION:Male, 47 years old with history of R31.9; Concern for renal stones TECHNIQUE: Standard CT of the abdomen and pelvis without IV or oral contrast. Lack of IV or oral co ntrast limits evaluation of solid and hollow organ viscera. Coronal and sagittal reformats were perfo rmed. FINDINGS: LOWER CHEST: Unremarkable ABDOMEN LIVER: Unremarkable noncontrast appearance GALLBLADDER AND BILE DUCTS: Unremarkable. PANCREAS: Unremarkable noncontrast appearance SPLEEN: Unremarkable noncontrast appearance ADRENAL GLANDS: Unremarkable noncontrast appearance. KIDNEYS AND URETERS: No evidence of hydronephrosis or renal calculus. Nonspecific bilateral perinephr ic fat stranding. No ureteral calculi identified. PELVIS BLADDER: Under distended, limiting evaluation. REPRODUCTIVE: Coarse calcifications of the prostate gland are identified. Calcification of the bilate ral vas deferens. ABDOMEN & PELVIS STOMACH AND BOWEL: Stomach and duodenum are unremarkable. No focal bowel wall thickening or surroundi ng inflammatory changes. Distal colonic diverticulosis without evidence for acute diverticulitis. The appendix is within normal limits. No evidence of bowel obstruction. PERITONEUM: No evidence of pneumoperitoneum or free fluid. VASCULATURE: No evidence of aortic aneurysm. MUSCULOSKELETAL: No acute osseous abnormalities. Mild disc degeneration changes are present throughou t the thoracolumbar spine. LYMPH NODES: No gross evidence for lymphadenopathy. SOFT TISSUE/ABDOMINAL WALL: Tiny fat filled umbilical hernia. IMPRESSION: 1. No acute abdominal/pelvic process. 2. No nephrolithiasis. 3. Colonic diverticulosis without evidence for acute diverticulitis.
== END | disposition home or self-care (01) ==
LOC: RADCTMAIN 12:34
PROVIDERS: ATTEND Internal Medicine
DX: K57.30 Diverticulosis of large intestine without perforation or abscess without bleeding (principal); R31.9 Hematuria, unspecified
CPT/HCPCS: 74176